=== PATIENT | female | born 1965 | race Caucasian/White ===

== ENCOUNTER 2018-07-11 06:54 | Emergency (ER) | payer MEDICAID, SELFPAY ==
[~2018-07-11] VITALS: Ht 170.2 cm; Wt 65.0 kg
[2018-07-11] MEDS ORDERED: ESTR1TAB5 PO (07:13)
[2018-07-11] MEDS ORDERED: LEVO50TA64 PO (07:13)
[2018-07-11] MEDS ORDERED: CARI350T PO (07:13)
[2018-07-11] MEDS ORDERED: OXYcodone/APAP 5/325MG TABLET ONE (07:16)
[2018-07-11] MEDS ORDERED: KETOROLAC 30 MG/1 ML ONE (07:16)
[2018-07-11] MEDS ORDERED: DIAZEPAM 5 MG TABLET ONE (07:17)
--- NOTE | 2018-07-11 07:28 | NUR ---
FIRST CONTACT WITH PT. PROVIDED PT MEDICATION PER EMAR. RECIEVED BEDSIDE REPORT FROM LEONEL COSTELLO. ALL QUESTIONS ANSWERED. ASSUMING CARE OF PT. PT STATES, "I HAVE BODY PAIN ALL OVER THAT STARTED LAST NIGHT AND KEPT ME FROM SLEEPING." NADN. PT TEARFUL. PT CONNECTED TO NIBP AND CONTINOUS PULSE OX. PT AOX4, UNLABORED RESPIRATIONS EQUAL BILATERALLY, AND SKIN IS PINK, WARM, AND DRY. PROVIDED PT CALL LIGHT WITHIN REACH. PT HAS WARM BLANKETS FOR COMFORT MEASURES. NO NEEDS EXPRESSED AT THIS TIME. ALL SAFETY MEASURES IN PLACE.
[2018-07-11] MEDS ORDERED: KETOROLAC 30 MG/1 ML IM ONE (07:30)
[2018-07-11] MEDS ORDERED: PLEASE ENTER ALLERGIES MC SCH (07:30)
[2018-07-11] MEDS ORDERED: DIAZEPAM 5 MG TABLET PO ONE (07:30)
[2018-07-11] MEDS ORDERED: OXYcodone/APAP 5/325MG TABLET PO ONE (07:30)
[2018-07-11 08:01] LABS: BASOPHILS # (AUTO) 0.07 x10^3/uL (0-0.1); BASOPHILS % (AUTO) 1 % (0-1); EOSINOPHILS # (AUTO) 0.24 x10^3/uL (0-0.4); EOSINOPHILS % (AUTO) 4 % (1-7); LYMPHOCYTES # (AUTO) 2.58 x10^3/uL (1-3.4); LYMPHOCYTES % (AUTO) 38 % (22-44); MD NO; MEAN CORPUSCULAR HEMOGLOBIN 29.7 pg (27.0-34.8); MEAN CORPUSCULAR HGB CONC 33.1 g/dL (32.4-35.8); MEAN CORPUSCULAR VOLUME 89.8 fL (80-100); MEAN PLATELET VOLUME 9.1 fL (7.4-10.4); MONOCYTES # (AUTO) 0.67 x10^3/uL (0.2-0.8); MONOCYTES % (AUTO) 10 % (2-9); NEUTROPHILS # (AUTO) 3.26 x10^3/uL (1.8-6.8); NEUTROPHILS % (AUTO) 48 % (42-75); PLATELET COUNT 288 x10^3/uL (130-400); RED BLOOD COUNT 4.41 x10^6/uL (3.82-5.3); RED CELL DISTRIBUTION WIDTH 14.1 % (9.6-15.2)
[2018-07-11 08:09] LABS: ANION GAP 5 mmol/L (5-15); CALCIUM 8.2 mg/dL (8.5-10.1); CHLORIDE 109 mmol/L (98-107); CREATININE 0.62 mg/dL (0.55-1.02)
[2018-07-11 09:09] VITALS: BP 124/84
--- NOTE | 2018-07-11 09:09 | NUR ---
Patient given discharge instructions and they have confirmed that they understand the instructions. Patient ambulatory with steady gait. Provided pt discharge paperwork, prescription, and taxi voucher. Pt left with all belongings.
== END 2018-07-11 09:12 | disposition home or self-care (01) ==
LOC: ED 09:00
DX: M79.18 Myalgia, other site (principal); E03.9 Hypothyroidism, unspecified
CPT/HCPCS: 36415; 80048; 82040; 85025; 96372; 99283; J1885

== ENCOUNTER 2018-12-03 08:09 | Emergency (ER) | payer MEDICAID ==
[~2018-12-03] VITALS: Ht 170.2 cm; Wt 73.3 kg
[~2018-12-03 08:09] MED LIST: CARI350T PO; ESTR1TAB5 PO; LEVO50TA64 PO
--- NOTE | 2018-12-03 08:51 | NUR ---
TO ROOM 21
[2018-12-03 09:03] VITALS: BP 119/45
--- NOTE | 2018-12-03 09:04 | NUR ---
PA AT BS
[2018-12-03] MEDS ORDERED: DIAZEPAM 5 MG TABLET ONE (09:28)
[2018-12-03] MEDS ORDERED: KETOROLAC 60 MG/2 ML ONE (09:28)
[2018-12-03] MEDS ORDERED: KETOROLAC 30 MG/1 ML IM ONE (09:30)
[2018-12-03] MEDS ORDERED: DIAZEPAM 5 MG TABLET PO ONE (09:30)
--- NOTE | 2018-12-03 10:11 | NUR ---
PT MEDICATED PER ORDER. AT THIS TIME PT IN ROOM WITH EYES CLOSED. LIGHT SNORING CAN BE HEARD. RESPS EVEN AND UNLABORED. O2 SAT AT 100% ON RA.
== END 2018-12-03 11:14 | disposition home or self-care (01) ==
LOC: ED 10:48 → MERGE 10:48 → ED 11:14
DX: M54.2 Cervicalgia (principal); M62.838 Other muscle spasm; R21 Rash and other nonspecific skin eruption
CPT/HCPCS: 72050; 96372; 99283; J1885

== ENCOUNTER 2019-01-29 09:02 | Emergency (ER) | payer MEDICAID ==
[~2019-01-29] VITALS: Ht 170.2 cm; Wt 73.1 kg
[2019-01-29 09:04] VITALS: BP 135/75
== END 2019-01-29 11:28 | disposition home or self-care (01) ==
LOC: ED 11:09
DX: L03.116 Cellulitis of left lower limb (principal); F17.210 Nicotine dependence, cigarettes, uncomplicated; E03.9 Hypothyroidism, unspecified
CPT/HCPCS: 36415; 80048; 82040; 85025; 99284

== ENCOUNTER 2019-02-05 10:16 | Emergency (ER) | payer MEDICAID ==
[~2019-02-05] VITALS: Ht 170.2 cm; Wt 70.0 kg
[2019-02-05 10:39] VITALS: BP 118/62
== END 2019-02-05 11:19 | disposition home or self-care (01) ==
LOC: ED 11:12
DX: L03.116 Cellulitis of left lower limb (principal); Z76.0 Encounter for issue of repeat prescription; E03.9 Hypothyroidism, unspecified
CPT/HCPCS: 99283

== ENCOUNTER 2020-12-04 20:58 | Emergency (ER) | payer MEDICAID ==
[~2020-12-04] VITALS: Ht 170.2 cm; Wt 65.7 kg
[~2020-12-04 20:58] MED LIST changes: +MELO15TA24 PO
--- NOTE | 2020-12-04 23:49 | NUR ---
HÉCTORX1
--- NOTE | 2020-12-05 00:29 | NUR ---
pt to room
--- NOTE | 2020-12-05 00:29 | NUR ---
cc of throat pain, pt has hoarse voice, states it started a few weeks ago with congestion in face.. hx of mrsa and cellulitis. pt has mild edema to tip of nose.
[2020-12-05] MEDS ORDERED: SULFAMETH./TRIMETHOPRIM DS 800MG/160MG TABLET ONE (00:39)
[2020-12-05] MEDS ORDERED: CEPHALEXIN 500 MG CAPSULE ONE (00:39)
[2020-12-05 00:42] VITALS: BP 126/72
[2020-12-05] MEDS ORDERED: CEPHALEXIN 500 MG CAPSULE PO ONE (01:00)
[2020-12-05] MEDS ORDERED: SULFAMETH./TRIMETHOPRIM DS 800MG/160MG TABLET PO ONE (01:00)
== END 2020-12-05 01:16 | disposition home or self-care (01) ==
LOC: ED 21:28
DX: J34.0 Abscess, furuncle and carbuncle of nose (principal)
CPT/HCPCS: 99283